=== PATIENT | male | born 1965 | race Caucasian/White ===

== ENCOUNTER 2016-12-20 00:18 | Emergency (ER) | payer BC ==
[~2016-12-20] VITALS: Ht 185.4 cm; Wt 128.8 kg
[2016-12-20 01:04] LABS: HEMATOCRIT 45.9 % (38.0-50.0); MCH 29.6 PG (29.0-34.0); MCHC 35.3 G/DL (30.0-36.0); MCV 83.8 FL (86-99); MEAN PLAT.VOLUME 9.6 uM^3 (9.0-12.4); PLATELET COUNT 140 K/uL (156-360); RBC DIS.WIDTH-CV 12.9 % (11.8-14.6); RBC DIS.WIDTH-SD 39.3 % (39-53); RED BLOOD COUNT 5.48 M/uL (4.00-5.50); WHITE BLOOD COUNT 6.3 K/uL (4.1-10.2)
[2016-12-20 01:19] LABS: CHLORIDE 103 mEq/L (99-109); POTASSIUM 4.1 mEq/L (3.7-5.4); SODIUM 138 mEq/L (136-147)
[2016-12-20 01:20] LABS: GLUCOSE 152 mg/dL (70-99)
[2016-12-20 01:22] LABS: ANION GAP 13 MEQ/L (2-14)
[2016-12-20 01:24] LABS: GFR ESTIMATE (CALCULATED) > 59 mL/min/
[2016-12-20 01:25] LABS: UREA NITROGEN (BUN) 18 mg/dL (9-23)
[2016-12-20] MEDS ORDERED: ZITHROMAX250 MG PO (04:13)
[2016-12-20 04:41] LABS: TROP-I INTERPRETATION NEGATIVE; TROPONIN-I < 0.01 ng/mL (0.0-0.30)
[2016-12-20 04:54] VITALS: BP 158/91
== END 2016-12-20 04:55 | disposition home or self-care (01) ==
LOC: EME 00:18
DX: J01.90 Acute sinusitis, unspecified (principal); R05 Cough; J02.9 Acute pharyngitis, unspecified; R09.81 Nasal congestion; R42 Dizziness and giddiness; E11.9 Type 2 diabetes mellitus without complications
CPT/HCPCS: 71020; 80048; 84484; 85027; 93005; 99281; 99284